=== PATIENT | male | born 2000 | race Caucasian/White ===

== ENCOUNTER 2021-08-26 22:55 | Emergency (ER) | payer MEDICAID ==
[~2021-08-26] VITALS: Ht 177.8 cm; Wt 62.7 kg
[2021-08-26 23:14] VITALS: BP 113/76
--- NOTE | 2021-08-26 23:30 | NUR ---
Patient placed in c-collar.
[2021-08-27] MEDS ORDERED: HYDROcodone/acetaminophen 10/325mg tab PO ONE (01:45)
[2021-08-27] MEDS ORDERED: HYDR-3965 PO (02:01)
== END 2021-08-27 02:07 | disposition home or self-care (01) ==
LOC: ER 22:56
DX: M54.2 Cervicalgia (principal); R51.9 Headache, unspecified; Z72.89 Other problems related to lifestyle; Z79.899 Other long term (current) drug therapy
CPT/HCPCS: 70450; 72125; 99284; L0172

== ENCOUNTER 2023-03-10 12:53 | Emergency (ER) | payer MEDICAID ==
[~2023-03-10] VITALS: Ht 180.3 cm; Wt 63.2 kg
[2023-03-10] MEDS ORDERED: NAPR-56 PO (14:08)
[2023-03-10 14:32] VITALS: BP 169/104; PULSE 92; RESP 16; TEMP 98.5; O2SAT 100
== END 2023-03-10 14:36 | disposition home or self-care (01) ==
LOC: ER 12:54
DX: S60.042A Contusion of left ring finger without damage to nail, initial encounter (principal); X58.XXXA Exposure to other specified factors, initial encounter; Y93.89 Activity, other specified; Y92.89 Other specified places as the place of occurrence of the external cause; Y99.8 Other external cause status
CPT/HCPCS: 29130; 73130; 99283

== ENCOUNTER 2024-09-30 12:22 | Emergency (ER) | payer MEDICAID ==
[~2024-09-30] VITALS: Ht 180.3 cm; Wt 63.0 kg
--- NOTE | 2024-09-30 13:44 | RADIOLOGY REPORT ---
DI RIBS,UNILAT, HISTORY: left rib pain, fell on rock COMPARISON: None None TECHNICAL DATA: 1 view of the chest was obtained. 3 views of left ribs. FINDINGS: Lines and tubes: None Cardiomediastinal silhouette: normal Pulmonary vasculature: normal Lung expansion: normal Lung airspace: normal Lung interstitium: normal Pleura: normal Pneumothorax: no Bones: Unremarkable Other: no IMPRESSION: No acute intrathoracic abnormality. No rib fracture is seen.
[2024-09-30] MEDS ORDERED: LIDO700A47 TOP (13:55)
[2024-09-30] MEDS ORDERED: NAPR-56 PO (13:55)
--- NOTE | 2024-09-30 13:59 | Physician Documentation ---
History of Present Illness ~ Chief Complaint: Rib pain Stated Complaint: FALL, RIB PAIN Time Seen by MD: 12:34 OK to notify your PCP?: Yes Primary Medical Doctor: NONE Source: patient Mode of Arrival: POV Exam Limitations: no limitations HPI 23-year-old male presents with left posterior rib pain after [place] . He tried taking some ibuprofen last dose 3 hours ago with no relief. He has increased pain on inspiration. No loss of consciousness or other symptoms from the fall. Tetanus within 5 Years?: Yes Allergies: Coded Allergies: No Known Allergies (Unverified , 08/26/21) Active Prescriptions See Medication Reconciliation Form. Past Medical History Past Medical History: No Pertinent History Past Surgical History: no surgical history Alcohol Use: Occasionally Lives In: Home Review of Systems All Other Systems at this time: Reviewed and Negative Physical Exam Vital Signs: RN Vital Signs have been reviewed: Yes, Temperature: 98.6, Source: Temporal, Heart Rate: 78, Respiratory Rate: 16, BP: 124/85, Pulse Oximetry: 98, Weight: 63.000 Oxygen Flow Rate: 0 Pulse Oximetry Reflects: adequate oxygenation Physical Exam General: Alert, no distress. HEENT: No injection, moist mucous membranes. Neck: Full range of motion. Respiratory: No respiratory distress, equal chest rise and fall. Bilateral lung sounds clear Chest: No accessory muscle use. Cardiovascular: Regular rate and rhythm. S1, S2 normal. Gastrointestinal: Nondistended. Extremities: Normal range of motion, no deformity. Back: Pain to palpation of left posterior ribs number 6 7 and 8. Bruising seen. No midline tenderness. Neurologic: Oriented x4. Psychiatric: Normal mood and affect. Skin: Normal color, warm and dry. Progress Results/Orders Reviewed/noted all lab results: Yes Results/Orders Orders - LORI HELLERP Ribs,Unilat (09/30/24 12:41) Completed Orders - LORI HELLER [employer] Ribs,Unilat (09/30/24 12:41) Lidocaine 5% Patch (Lidoderm 5% Patch) (09/30/24 12:35) Acetaminophen 325mg Tablet (Tylenol Tabl (09/30/24 12:35) Medications Received in ER Medications (Trade) Dose Ordered Sig/Angie Route PRN Reason Start Time Stop Time Status Last Admin Dose Admin (Lidoderm 5% Patch) 1 patch DAILY ONCE TP 09/30/24 12:35 09/30/24 12:39 DC 09/30/24 12:49 1 PATCH (Tylenol tablet) 650 mg ONCE ONCE PO 09/30/24 12:35 09/30/24 12:39 DC 09/30/24 12:49 650 MG Vital Signs 09/30/24 12:27 Temp 98.6 Pulse 78 Resp 16 B/P (MAP) 124/85 Pulse Ox 98 O2 Flow Rate 0 EKG/XRAY/CT/US/VASC/MRI Bone/Soft Tissue X-Ray (Spine) : Additional Comment Left rib x-rays as interpreted by me shows: No rib dislocation, acute fracture or soft tissue swelling. Medical Decision Making Findings 23-year-old male presents with left posterior rib pain after falling on a rock [place] . He is having point tenderness to several posterior ribs but no bruising is seen. The x-ray shows no acute fracture or dislocation. We discussed that rib contusions can take 6-8 weeks to fully heal and can very painful in that process. While in the department we gave him Tylenol and a lidocaine patch. He took ibuprofen 3 hours prior to arrival. We discussed RICE therapy. He should follow up with his primary care provider within the next week and return back here for any new or worsening symptoms. Differential Dx:Considerations: Include: Flail chest, Pneumothorax, Rib fracture, Tension pneumothorax Departure Disposition: HOME / SELF CARE / HOMELESS Impression: Primary Impression: Rib pain Condition: Stable Discharge Instructions: Rib Contusion Additional Instructions: You can use Tylenol and they prescribed naproxen for pain relief as well as lidocaine patches every 12 hours. Follow up with her primary care provider within the next week. As discussed your x-ray was negative for any fractures to the ribs. Rib contusion pain can take 6-8 weeks to fully resolve. Return back here for any new or worsening symptoms. Referrals: NO PRIMARY CARE PROVIDER (PCP) Prescriptions Naproxen (Naproxen) 500 Mg Tablet 1 TAB PO Q12H, #20 TAB Prov: LORI HELLER [employer] 09/30/24 Lidocaine (Lidocaine) 5 % Adh..patch 1 PATCH TOP DAILY for 30 Days, #30 PATCH 0 Refills Prov: LORI HELLER 09/30/24 Education Educated: Patient, Family Educated regarding: diagnosis, treatment, prognosis, need for follow up Additional Comment Medical Screen Exam This patient recieved a medical screening examination. After reviewing the individual's medical complaints with presenting symptoms and performing an appropriate physical examination, it was determined that no immediate life-threa tening emergency medical condition is present. This individual is also not a women having contractions. Signature Scribe Signature: . Attestation: Scribed for Lori Heller by Lori Mireles NP . 09/30/24 13:57 Parts of this note were created using [employer] voice recognition software program. While efforts were made to correct any mistakes made by this voice recognition software program, nonsensical phrases may remain in this note. In addition, there may be errors and syntax, grammar, content and spelling. LORI HELLER Sep 30, 2024 13:59
[2024-09-30 14:06] VITALS: BP 115/78; PULSE 65; RESP 16; TEMP 98.6; O2SAT 98
== END 2024-09-30 14:07 | disposition home or self-care (01) ==
LOC: ER 12:22
DX: R07.81 Pleurodynia (principal)
CPT/HCPCS: 71100; 99284